=== PATIENT | female | born 1960 ===

== ENCOUNTER 2020-12-29 17:17 | Emergency (ER) | payer OTHER ==
[~2020-12-29] VITALS: Ht 157.5 cm; Wt 82.6 kg
[2020-12-29] MEDS ORDERED: LOSARTAN (19:23)
== END 2020-12-30 00:14 | disposition home or self-care (01) ==
LOC: ER 17:17
DX: K57.90 Diverticulosis of intestine, part unspecified, without perforation or abscess without bleeding (principal); N20.0 Calculus of kidney; Z03.818 Encounter for observation for suspected exposure to other biological agents ruled out